=== PATIENT | male | born 1985 | race American Indian/Alaskan Native ===

== ENCOUNTER 2018-08-11 16:56 | Inpatient (IN) | payer MEDICAID, OTHER ==
[2018-08-11 16:56] VITALS: BMI 22.3
[2018-08-11 17:24] VITALS: RESP 18
[2018-08-11] MEDS ORDERED: Sodium Chloride 0.9% 500 ML IV STA (17:46)
[2018-08-11 18:15] LABS: BASO # 0.1 K/uL (0.0-0.2); BASO % 0.9 % (0.0-2.0); EOS # 0.1 K/uL (0.0-0.7); EOS % 0.9 % (0.0-4.0); HEMOGLOBIN 14.4 g/dL (12.0-18.0); LYMPH # 2.1 K/uL (1.0-4.3); LYMPH % 20.1 % (20.0-40.0); MEAN CELL VOLUME 90.7 fL (80.0-94.0); MEAN CORPUSCULAR HEMOGLOBIN 30.9 pg (27.0-31.0); MEAN CORPUSCULAR HGB CONC 34.1 g/dL (33.0-37.0); MONO # 0.9 K/uL (0.0-0.8); MONO % 8.2 % (0.0-10.0); NEUT # 7.4 K/uL (1.8-7.0); NEUT % 69.9 % (50.0-75.0); RBC 4.67 Mil/uL (4.40-5.90); RED CELL DISTRIBUTION WIDTH 13.1 % (11.5-14.5); WHITE BLOOD COUNT 10.6 K/uL (4.8-10.8)
[2018-08-11 18:21] LABS: URINE BILIRUBIN NEGATIVE (NEGATIVE); URINE BLOOD 1+ (NEGATIVE); URINE CLARITY Clear (Clear); URINE COLOR Yellow (YELLOW); URINE GLUCOSE (UA) NORMAL (Normal); URINE LEUKOCYTE ESTERASE NEG Leu/uL (Negative); URINE PROTEIN 1+ mg/dL (NEGATIVE); URINE UROBILINOGEN NORMAL mg/dL (0.2-1.0)
[2018-08-11 18:32] LABS: ALB/GLOB RATIO 1.5 (1.0-2.1); ALBUMIN 4.7 g/dL (3.5-5.0); ALT/SGPT 33 U/L (21-72); AMYLASE 81 U/L (30-110); AST/SGOT 81 U/L (17-59); BLOOD UREA NITROGEN 11 mg/dL (9-20); CALCIUM 9.8 mg/dl (8.6-10.4); GFR NON-AFRICAN AMERICAN > 60; LIPASE 42 U/L (23-300)
[2018-08-11 18:38] LABS: BARBITURATES, UR NEGATIVE (NEGATIVE); BENZODIAZEPINES, UR NEGATIVE (NEGATIVE); OPIATES, UR NEGATIVE (NEGATIVE); PHENCYCLIDINE, UR NEGATIVE (NEGATIVE)
--- NOTE | 2018-08-11 18:43 | C.PDOC ---
History Of Present Illness 33-year-old male is brought to the ED by ambulance for psychiatric evaluation of bizarre behavior. Patient does not remember what happened to him or why he was brought to the ED. When questioned, patient states he has testicular discomfort. He states he has been evaluated 2-3 times in the past for the same, but does not know what tests were done or what his final diagnosis was. Patient states he wants to be seen by a psychiatrist, but cannot explain why. Patient states he was previously admitted in [place]. Otherwise, he denies suicidal/homicidal ideation. <Kristi Avalos - Last Filed: 08/11/18 18:48> History Per: Patient, EMS History/Exam Limitations: no limitations Onset/Duration Of Symptoms: Hrs Current Symptoms Are (Timing): Still Present Associated Symptoms: denies: Suicidal Thoughts, Suicidal Plan Additional History Per: Patient <Kristi Avalos - Last Filed: 08/11/18 18:48> <Ray Yoder - Last Filed: 08/11/18 20:33> Time Seen by Provider: 08/11/18 17:32 Chief Complaint (Nursing): Psychiatric Evaluation Past Medical History Reviewed: Historical Data, Nursing Documentation, Vital Signs Vital Signs: Last Vital Signs Temp 100.1 F H 08/11/18 17:19 Pulse 96 H 08/11/18 17:19 Resp 18 08/11/18 17:19 BP 111/68 08/11/18 17:19 Pulse Ox 97 08/11/18 17:19 - Medical History PMH: Depression Denies: Diabetes, Hepatitis, HTN, Seizures, Sexually Transmitted Disease Surgical History: No Surg Hx Family History: States: Unknown Family Hx - Social History Hx Alcohol Use: No Hx Substance Use: No - Immunization History Hx Tetanus Toxoid Vaccination: No Hx Influenza Vaccination: No Hx Pneumococcal Vaccination: No <Kristi Avalos - Last Filed: 08/11/18 18:48> Vital Signs: Last Vital Signs Temp 98.4 F 08/11/18 19:03 Pulse 82 08/11/18 19:03 Resp 18 08/11/18 19:03 BP 134/74 08/11/18 19:03 Pulse Ox 98 08/11/18 19:03 <Ray Yoder - Last Filed: 08/11/18 20:33> Review Of Systems Genitourinary: Positive for: Other (testicular discomfort ) Psych: Positive for: Other (bizarre behavior ). Negative for: Suicidal ideation <Kristi Avalos - Last Filed: 08/11/18 18:48> Physical Exam - Physical Exam Appears: Non-toxic, No Acute Distress Skin: Normal Color, Warm, Dry Head: Atraumatic, Normacephalic Eye(s): bilateral: Normal Inspection Oral Mucosa: Moist Neck: Supple Chest: Symmetrical, No Deformity, No Tenderness Cardiovascular: Rhythm Regular, No Murmur Respiratory: Normal Breath Sounds, No Accessory Muscle Use, No Rales, No Rhonchi, No Wheezing Gastrointestinal/Abdominal: Soft, No Tenderness, No Guarding, No Rebound Male Genital: Testicular Tenderness (mild, left ), No Testicular Swelling, No Other (erythema to testicle ) Extremity: Normal ROM, Capillary Refill (less than 2 seconds ) Neurological/Psych: Normal Speech, Normal Cognition, Other (bizarre affect) <Kristi Avalos - Last Filed: 08/11/18 18:48> ED Course And Treatment - Laboratory Results Result Diagrams: 08/11/18 18:09 08/11/18 18:09 Lab Results: Total Bilirubin 0.8 mg/dL (0.2-1.3) 08/11/18 18:09 AST 81 U/L (17-59) H 08/11/18 18:09 ALT 33 U/L (21-72) 08/11/18 18:09 Alkaline Phosphatase 54 U/L (38-126) 08/11/18 18:09 Total Protein 7.8 g/dL (6.3-8.3) 08/11/18 18:09 Albumin 4.7 g/dL (3.5-5.0) 08/11/18 18:09 Globulin 3.1 gm/dL (2.2-3.9) 08/11/18 18:09 Albumin/Globulin Ratio 1.5 (1.0-2.1) 08/11/18 18:09 Amylase 81 U/L (30-110) 08/11/18 18:09 Lipase 42 U/L (23-300) 08/11/18 18:09 Urine Color Yellow (YELLOW) 08/11/18 18:09 Urine Clarity Clear (Clear) 08/11/18 18:09 Urine pH 5.0 (5.0-8.0) 08/11/18 18:09 Ur Specific [place] 1.014 (1.003-1.030) 08/11/18 18:09 Urine Protein 1+ mg/dL (NEGATIVE) H 08/11/18 18:09 Urine Glucose (UA) Normal mg/dL (Normal) 08/11/18 18:09 Urine Ketones Negative mg/dL (NEGATIVE) 08/11/18 18:09 Urine Blood 1+ (NEGATIVE) H 08/11/18 18:09 Urine Nitrate Negative (NEGATIVE) 08/11/18 18:09 Urine Bilirubin Negative (NEGATIVE) 08/11/18 18:09 Urine Urobilinogen Normal mg/dL (0.2-1.0) 08/11/18 18:09 Ur Leukocyte Esterase Neg Yu/uL (Negative) 08/11/18 18:09 Urine WBC (Auto) 3 /hpf (0-5) 08/11/18 18:09 Urine RBC (Auto) 3 /hpf (0-3) 08/11/18 18:09 O2 Sat by Pulse Oximetry: 97 (on RA) Pulse Ox Interpretation: Normal Progress Note: Patient found to be febrile in the ED. Bloodwork, urinalysis, CXR, EKG and Testicular US ordered and reviewed. Tylenol PO and IV Fluids given. Case discussed with reinforcing iron and re[employer] workers Connie, who cannot find any record of patient being admitted in [place]. <Kristi Avalos - Last Filed: 08/11/18 18:48> - Laboratory Results Result Diagrams: 08/11/18 18:09 08/11/18 18:09 Lab Results: Total Bilirubin 0.8 mg/dL (0.2-1.3) 08/11/18 18:09 AST 81 U/L (17-59) H 08/11/18 18:09 ALT 33 U/L (21-72) 08/11/18 18:09 Alkaline Phosphatase 54 U/L (38-126) 08/11/18 18:09 Total Protein 7.8 g/dL (6.3-8.3) 08/11/18 18:09 Albumin 4.7 g/dL (3.5-5.0) 08/11/18 18:09 Globulin 3.1 gm/dL (2.2-3.9) 08/11/18 18:09 Albumin/Globulin Ratio 1.5 (1.0-2.1) 08/11/18 18:09 Amylase 81 U/L (30-110) 08/11/18 18:09 Lipase 42 U/L (23-300) 08/11/18 18:09 Urine Color Yellow (YELLOW) 08/11/18 18:09 Urine Clarity Clear (Clear) 08/11/18 18:09 Urine pH 5.0 (5.0-8.0) 08/11/18 18:09 Ur Specific [place] 1.014 (1.003-1.030) 08/11/18 18:09 Urine Protein 1+ mg/dL (NEGATIVE) H 08/11/18 18:09 Urine Glucose (UA) Normal mg/dL (Normal) 08/11/18 18:09 Urine Ketones Negative mg/dL (NEGATIVE) 08/11/18 18:09 Urine Blood 1+ (NEGATIVE) H 08/11/18 18:09 Urine Nitrate Negative (NEGATIVE) 08/11/18 18:09 Urine Bilirubin Negative (NEGATIVE) 08/11/18 18:09 Urine Urobilinogen Normal mg/dL (0.2-1.0) 08/11/18 18:09 Ur Leukocyte Esterase Neg Yu/uL (Negative) 08/11/18 18:09 Urine WBC (Auto) 3 /hpf (0-5) 08/11/18 18:09 Urine RBC (Auto) 3 /hpf (0-3) 08/11/18 18:09 <Ray Yoder - Last Filed: 08/11/18 20:33> Disposition - Disposition Disposition Time: 19:00 <Kristi Avalos - Last Filed: 08/11/18 18:48> Discussed With : Marianna Romeo Doctor Will See Patient In The: Hospital Counseled Patient/Family Regarding: Diagnosis - Disposition Disposition Time: 20:32 <Ray Yoder - Last Filed: 08/11/18 20:33> - Disposition Disposition: HOSPITALIZED Condition: STABLE Forms: [facility] (Indonesian) - Clinical Impression Clinical Impression: Patient needs psychiatric hold for evaluation, Schizophrenia, unspecified - PA / PARTS CLASSIFIER / Resident Statement MD/DO has reviewed & agrees with the documentation as recorded. - Scribe Statement The provider has reviewed the documentation as recorded by the Scribe (Magalys Simon) All medical record entries made by the Scribe were at my direction and personally dictated by me. I have reviewed the chart and agree that the record accurately reflects my personal performance of the history, physical exam, medical decision making, and the department course for this patient. I have also personally directed, reviewed, and agree with the discharge instructions and disposition. <Kristi Avalos - Last Filed: 08/11/18 18:48> Physician Patient Turnover Patient Signed Over To: Ray Yoder Handoff Comments: testicular US, psych eval, dispo <Kristi Avalos - Last Filed: 08/11/18 18:48>
[2018-08-11 20:58] VITALS: O2SAT 97
--- NOTE | 2018-08-11 22:11 | PCM.BM ---
<Luther Junior - Last Filed: 08/11/18 22:08> Treatment Plan Problems - Problems identified on initial assessmt Altered thought Process Date Initiated: 08/11/18 Time Initiated: 21:05 Assessment reference: NA Status: Active Medication Non-adherence Date Initiated: 08/11/18 Time Initiated: 21:05 Assessment reference: NA Status: Active Treatment assets and liabiliti Patient Assests: negotiates basic needs Patient Liabilities: financial problems, poor support system, substance abuse (Marijuana) - Milieu Protocol Maintain good personal hygiene: daily Encourage regular showers, daily Remind patient to perform daily oral care, every shift Assist patient to perform ADL's Conduct patient checks and document Observation sheet: Q15 minutes Maintain personal safety: every shift Educate patient to report safety concerns to staff, every shift Monitor environment for contraband/sharps Medication safety: Monitor for expected outcome, potential side effects: every shift, Assess barriers to learning: every shift, Assess readiness for medication education: every shift <Arianna Santacruz - Last Filed: 08/13/18 14:04> Family Contact Family involvement: Patient does not wish Family/SO involvement Family contact: Patient declines to allow family contact at present - Goals for Treatment Patient goals for treatment: " I want to go to an outpatient program." Discharge/Continuing Care - Education Needs Education Needs: Patient Medication, Patient Diagnosis/Disease Process, Patient Coping Skills, Patient Placement options, Patient Community resources - Discharge Discharge Criteria: Free of Suicidal thoughts, Free of paranoid thoughts, Normal sleep pattern, Ability to care for self, No longer exhibiting s/s of withdrawal, Reduction of target symptoms Discharge to:: Home - Treatment Team Participation Discussed with Family/SO: No Was Patient/Family/SO present at Treatment Team Meeting: Yes
--- NOTE | 2018-08-12 10:09 | RAD ---
HISTORY: low grade fever COMPARISON: None available. TECHNIQUE: Chest PA and lateral, 2 views FINDINGS: LUNGS: No focal consolidation. Please note that chest x-ray has limited sensitivity for the detection of pulmonary masses. PLEURA: No significant pleural effusion identified. No definite pneumothorax . CARDIOVASCULAR: Heart size appears within normal limits. Atherosclerotic calcifications of the aorta. Ectatic aorta. OSSEOUS STRUCTURES: No acute osseous abnormality identified. VISUALIZED UPPER ABDOMEN: Unremarkable. OTHER FINDINGS: None. IMPRESSION: No focal consolidation.
--- NOTE | 2018-08-12 14:52 | US ---
Date of service: 08/11/2018 HISTORY: Testicular pain TECHNIQUE: Realtime sonography through the scrotum with color and doppler flow. COMPARISON: None Available. FINDINGS: RIGHT TESTICLE: Measures 3.1 x 1.1 x 2.4 cm. Innumerable microcalcifications. Homogeneous echotexture. Blood flow is demonstrated. Serpiginous hypoechoic structures adjacent to and somewhat inferior to the testicle with minimal associated color flow. RIGHT EPIDIDYMIS: 0.4 x 0.4 x 0.5 cm epididymal cyst. Hypoechoic region involving the epididymal tail. LEFT TESTICLE: Measures 3.9 x 1.8 x 2.8 cm. Scattered microcalcifications. Homogeneous echotexture. Blood flow is demonstrated.Serpiginous hypoechoic structures adjacent to and somewhat inferior to the testicle with no associated color flow. LEFT EPIDIDYMIS: Hypoechoic appearance of the epididymal tail. HYDROCELE: None. VARICOCELE: See above. OTHER FINDINGS: None. IMPRESSION: Onodu-[id number]-zezy-left testicular microlithiasis. Please note that presence of microlithiasis alone in absence of other risk factors is not an indication for further sonographic surveillance or biopsy. Ultrasound is recommended in follow-up of patient's with increased risk of germ cell tumor, personal or family history of germ cell tumor, maldescent or undescended testes, orchidopexy, testicular atrophy. Bilateral serpiginous hypoechoic structures adjacent and somewhat inferior to the testicles with as described above; correlate clinically for possibility of thrombosed varicoceles. 0.4 x 0.4 x 0.5 cm right epididymal cyst. Bilateral hypoechoic appearance of the epididymal tail; correlate for possibility of remote epididymitis. Preliminary impression was provided by [employer]. Study marked for PA review.
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
--- NOTE | 2018-08-12 23:53 | CARD ---
APPROVED REPORT Date of service: 08/11/2018 EKG Measurement Heart [id number] <Conclusion> Normal sinus rhythm with sinus arrhythmia ST elevation, probably due to early repolarization Borderline ECG
[2018-08-13] MEDS: Divalproex 500 mg DR Tab PO SCH ×2 (10:18→17:01)
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
[2018-08-14] MEDS: Divalproex 500 mg DR Tab PO SCH ×2 (09:29→17:18)
--- NOTE | 2018-08-14 23:25 | PCM.PYCHPN ---
Psychiatric Progress Note - Psychiatric Progress Note Medication Change: Yes Medical Record Reviewed: Yes Mental Status Examination - Cognitive Function Orientation: Person, Place, Time - Mood Mood: Neutral - Affect Affect: Blunted - Formal Thought Process Formal Thought Process: Paranoia, Loosening of associations, Flight of ideas - Homicidal Ideation Homicidal Ideation: No
[2018-08-15 06:43] VITALS: BP 110/69; PULSE 69; TEMP 98.3
[2018-08-15] MEDS: Divalproex 500 mg DR Tab PO SCH (09:10)
--- NOTE | 2018-08-15 09:31 | PCM.PYCHDC ---
Mental Status Examination - Mental Status Examination Orientation: Person Discharge Summary - Discharge Note Consultations:: List each consultation separately and include: 1. Reason for request. 2. Findings. 3. Follow-up Summary of Hospital Course include:: 1. Description of specific treatment plan utilized for patients during their course of treatmen. 2. Summarize the time- course for resolution of acute symptoms and/or regressed behaviors. 3. Describe issues identified and worked on during hospitalization. 4. Describe medication utilized. 5. Describe medical problems identified and treated. 6. Reassessment of suicide risk Summary of Hospital Course: He wouldn't wait to complete his treatment. He was screened by [facility] but rejected. He then put in a 48-hr note and got d/c'ed today before it ended. Of note, writer producer wrote only 15-day supply of meds with 1 refill. - Final Diagnosis (DSM 5) Condition upon Discharge: STABLE Disposition: AGAINST MEDICAL ADVICE Prescriptions/Medication Reconciliation: Benztropine [Cogentin] 1 mg PO BID #60 tab Divalproex [Depakote DR] 1,000 mg PO BID #60 tcp Haloperidol [Haldol] 10 mg PO BID #60 tab traZODone [Desyrel] 50 mg PO HS #30 tab
== END 2018-08-15 11:52 | disposition left against medical advice (07) | DRG 885 ==
LOC: C.ER 16:56 → C.5E 20:33
PROVIDERS: ADMIT Psychiatry & Neurology Psychiatry; ATTEND Psychiatry & Neurology Psychiatry
PROC: GZ3ZZZZ Medication Management (ICD-10-PCS; principal; 2018-08-11)
PROC: GZHZZZZ Group Psychotherapy (ICD-10-PCS; 2018-08-11)
PROC: GZ56ZZZ Individual Psychotherapy, Supportive (ICD-10-PCS; 2018-08-11)
DX: F20.9 Schizophrenia, unspecified (principal); F12.23 Cannabis dependence with withdrawal; F17.210 Nicotine dependence, cigarettes, uncomplicated; N50.89 Other specified disorders of the male genital organs